=== PATIENT | male | born 1995 | race Caucasian/White ===

== ENCOUNTER 2018-04-08 01:06 | Emergency (ER) | payer BC ==
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
--- NOTE | 2018-04-08 02:41 | RAD ---
EXAM: CT Head Without Intravenous Contrast EXAM DATE/TIME: 04/08/2018 1:45 AM CLINICAL HISTORY: 23 years old, male; Injury or trauma; Fall; Additional info: Head injury TECHNIQUE: Axial computed tomography images of the head/brain without intravenous contrast. All CT scans at this facility use at least one of these dose optimization techniques: automated exposure control; mA and/or kV adjustment per patient size (includes targeted exams where dose is matched to clinical indication); or iterative reconstruction. COMPARISON: No relevant prior studies available. FINDINGS: Brain: No acute intracranial hemorrhage. No intercranial mass or mass effect. The garcia matter and white matter are intact. Ventricles: Normal. No ventriculomegaly. Sella: Focal hypodensity located within the pituitary gland located just to the right of midline. This measures 8.5 cm in length and 7 mm in width. Bones/joints: No fracture the bony calvarium. No evidence of an orbital wall fracture. Sinuses: Mucoperiosteal thickening involving both sphenoid sinuses. Mastoid air cells: Normal as visualized. No mastoid effusion. Orbits: The left globe, extraocular muscles and intraconal structures are intact. Soft tissues: Soft tissue hematoma overlying the left orbit and left frontal calvarium. IMPRESSION: 1. Soft tissue hematoma overlying the left orbit and left frontal calvarium. No underlying fracture. The left globe, extraocular muscles and intraconal structures are intact. 2. No evidence of a intracranial hemorrhage. No intracranial mass or obstructive hydrocephalus. 3. Area of increased density located in the right side of the sella. Suggest further correlation with the consideration of limited MRI of the sella. To contact [facility] with a general question: [facility] - [phone] For direct physician to physician contact: Physician Hotline - [phone] [facility] ([facility] Facility ID #[id number])
[2018-04-08 03:14] VITALS: BP 118/74
== END 2018-04-08 03:12 | disposition home or self-care (01) ==
LOC: ED 01:06
DX: S06.0X9A Concussion with loss of consciousness of unspecified duration, initial encounter (principal); S01.81XA Laceration without foreign body of other part of head, initial encounter; W03.XXXA Other fall on same level due to collision with another person, initial encounter; Y92.9 Unspecified place or not applicable
CPT/HCPCS: 12011; 70450; 99282